=== PATIENT | female | born 1955 | race American Indian/Alaskan Native ===

== ENCOUNTER 2016-03-12 12:16 | Emergency (ER) | payer OTHER ==
[2016-03-12 13:17] VITALS: BP 127/67
--- NOTE | 2016-03-12 13:41 | Emergency Department Report ---
Chief Complaint: Abdominal Pain Stated Complaint: VOMITING,ABDOMINAL PAIN Time Seen by Provider: 03/12/16 13:36 - HPI History of Present Illness: Patient reports abdominal and body cramping that initially started six days ago and continues to persist despite taking prescribed medication given by PCP last week. Today she is c/o vomiting three times and dizziness that started this am. She is a [facility] patient - ROS Review of Systems: all other systems are unremarkable except for documentation in HPI - Exam Vital Signs: Vital Signs 03/12/16 13:04 Temperature 98.0 F Pulse Rate 59 L Respiratory 18 Rate Blood Pressure 127/67 O2 Sat by Pulse 99 Oximetry Physical Exam: Gen: well developed and nourished, NAD Abd: soft, nondistended, bowel sounds present, non-tender, no rebound, rigid or guarding MSE screening note: Focused history and physical exam performed. Due to findings the following was ordered: laboratory and radiology studies ordered ED Disposition for MSE Condition: Stable Instructions: Abdominal Pain (ED)
[2016-03-12 14:16] LABS: Basophils % (Auto) 1.1 % (0.0-1.8); Eosinophils % (Auto) 1.8 % (0.0-4.3); Hematocrit 46.6 % (30.3-42.9); Hemoglobin 15.4 gm/dl (10.1-14.3); Mean Corpuscular HGB Conc 33 % (30-34); Mean Corpuscular Hemoglobin 27 pg (28-32); Mean Corpuscular Volume 80 fl (79-97); Platelet Count 207 K/mm3 (140-440); Red Cell Distribution Width 16.2 % (13.2-15.2); White Blood Count 10.3 K/mm3 (4.5-11.0)
[2016-03-12 14:23] LABS: Alanine Aminotransferase 18 units/L (7-56); Albumin 4.1 g/dL (3.9-5); Albumin/Globulin Ratio 1.1 %; Alkaline Phosphatase 126 units/L (35-129); BUN/Creatinine Ratio 23.75; Bilirubin,Total 0.2 mg/dL (0.1-1.2); Blood Urea Nitrogen 19 mg/dL (7-17); Calcium 9.6 mg/dL (8.4-10.2); Carbon Dioxide 26 mmol/L (22-30); Chloride 98.7 mmol/L (98-107); Creatine Kinase 211 units/L (30-135); Glucose 113 mg/dL (65-100); Lipase 32 units/L (13-60); Potassium 4.5 mmol/L (3.6-5.0); Sodium 139 mmol/L (137-145); Total Protein 7.7 g/dL (6.3-8.2)
[2016-03-12 14:26] LABS: Anion Gap 19 mmol/L
--- NOTE | 2016-03-14 19:22 | ED Elopement Review ---
ED Pt Elopement review - Results review Lab results: Laboratory Tests 03/12/16 03/12/16 03/12/16 13:16 13:51 13:51 WBC 10.3 RBC 5.80 H Hgb 15.4 H Hct 46.6 H MCV 80 MCH 27 L MCHC 33 RDW 16.2 H Plt Count 207 Lymph % (Auto) 33.8 [place] % (Auto) 7.6 H Eos % (Auto) 1.8 Baso % (Auto) 1.1 Lymph # 3.5 [place] # 0.8 Eos # 0.2 Baso # 0.1 Seg Neutrophils % 55.7 Seg Neutrophils # 5.7 Sodium 139 Potassium 4.5 Chloride 98.7 Carbon Dioxide 26 Anion Gap 19 BUN 19 H Creatinine 0.8 Estimated GFR > 60 BUN/Creatinine Ratio 23.75 Glucose 113 H POC Glucose 101 Calcium 9.6 Total Bilirubin 0.2 AST 17 ALT 18 Alkaline Phosphatase 126 Total Creatine Kinase 211 H Troponin T < 0.010 Total Protein 7.7 Albumin 4.1 Albumin/Globulin Ratio 1.1 Lipase 32 - Call Back decision Pt Call Back Decision: No action required
== END 2016-03-12 22:12 | disposition left against medical advice (07) ==
LOC: ED 12:16
DX: R42 Dizziness and giddiness (principal); R10.9 Unspecified abdominal pain; R11.10 Vomiting, unspecified; Z53.21 Procedure and treatment not carried out due to patient leaving prior to being seen by health care provider
CPT/HCPCS: 36415; 80053; 82550; 82962; 83690; 84484; 85025; 93005; 93010

== ENCOUNTER 2019-03-17 11:03 | Emergency (ER) | payer OTHER ==
--- NOTE | 2019-03-17 11:10 | Event Note ---
ED Screening Note ED Screening Note: right sided and substernal CP that began this morning states it feels like stabbing pain no N/V no fever no SOB PMHx DM, HTN, sleep apnea no cardiac hx This initial assessment/diagnostic orders/clinical plan/treatment(s) is/are subject to change based on patients health status, clinical progression and re- assessment by fellow clinical providers in the ED. Further treatment and workup at subsequent clinical providers discretion. Patient/guardian urged not to elope from the ED as their condition may be serious if not clinically assessed and managed. Initial orders include: CP protocol
[2019-03-17 11:14] VITALS: BP 144/59
[2019-03-17 12:02] LABS: Basophils % (Auto) 0.7 % (0.0-1.8); Eosinophils # (Auto) 0.1 K/mm3 (0.0-0.4); Eosinophils % (Auto) 1.2 % (0.0-4.3); Hematocrit 42.2 % (30.3-42.9); Lymphocytes # (Auto) 1.9 K/mm3 (1.2-5.4); Lymphocytes % (Auto) 27.9 % (13.4-35.0); Mean Corpuscular HGB Conc 33 % (30-34); Mean Corpuscular Volume 81 fl (79-97); Monocytes # (Auto) 0.5 K/mm3 (0.0-0.8); Monocytes % (Auto) 7.1 % (0.0-7.3); Platelet Count 196 K/mm3 (140-440); Red Blood Count 5.19 M/mm3 (3.65-5.03); Red Cell Distribution Width 15.7 % (13.2-15.2)
[2019-03-17 12:25] LABS: Alanine Aminotransferase 10 units/L (7-56); Albumin 3.9 g/dL (3.9-5); BUN/Creatinine Ratio 16; Blood Urea Nitrogen 11 mg/dL (7-17); Calcium 9.3 mg/dL (8.4-10.2); Hemolysis Index 12
--- NOTE | 2019-03-17 13:17 | XRay Report ---
CHEST 2 VIEWS INDICATION / CLINICAL INFORMATION: Chest pain. COMPARISON: None available. FINDINGS: SUPPORT DEVICES: None. HEART / MEDIASTINUM: Normal heart size. Atherosclerosis in the thoracic aorta. LUNGS / PLEURA: No significant pulmonary or pleural abnormality. No pneumothorax. ADDITIONAL FINDINGS: No significant additional findings. IMPRESSION: 1. No acute findings. Signer Name: Venkata Petersen MD Signed: 03/17/2019 1:13 PM Workstation Name: [id number]
== END 2019-03-17 11:30 | disposition left against medical advice (07) ==
LOC: ED 11:03
DX: R07.2 Precordial pain (principal); Z53.21 Procedure and treatment not carried out due to patient leaving prior to being seen by health care provider
CPT/HCPCS: 36415; 71046; 80053; 83690; 84484; 85025; 93005; 93010